=== PATIENT | female | born 1965 | race Caucasian/White ===

== ENCOUNTER 2016-02-17 11:27 | Inpatient (IN) | payer OTHER ==
[2016-02-17] VITALS (8 sets, daily range): BP systolic 125–189; BP diastolic 55–91; PULSE 62–70; RESP 16–28; O2SAT 86–100
[~2016-02-17] VITALS: Ht 162.6 cm; Wt 96.2 kg
[~2016-02-17 11:27] MED LIST: ALPR1TAB7 PO; AMIT75TA2 PO; AMLO10TA3 PO; FLE10 PO; FLUO20TA28 PO
--- NOTE | 2016-02-17 12:00 | ED.REPORT ---
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 Pt reports stabbing pain in abdomen which radiates to left flank constant for last 8 hours. Pt reports associated nausea and vomiting. Pt has no PCP currently. Her only medication currently is Prozac. She has not been taking her Amlodipine and amitriptyline due to being "between" doctors. Nursing Notes Stated Complaint: SEVERE ABDOMINAL PAIN Chief Complaint: General Complaint Nursing Notes Reviewed: Yes Allergies: Coded Allergies: Sulfa (Sulfonamide Antibiotics) (Verified Allergy, Severe, 02/17/16) gabapentin (Verified Allergy, Severe, 02/17/16) olmesartan (Verified Allergy, Severe, swelling , flushing, 02/17/16) prednisone (Verified Allergy, Severe, 02/17/16) ketorolac tromethamine (Verified Allergy, Unknown, 02/17/16) Scheduled Fluoxetine (Fluoxetine) 20 Mg Tablet 40 MG PO DAILY General Time Seen by MD: 11:56 Chief Complaint Abdominal pain Hx Obtained From: Patient Arrived By: Walk-in Sudden in Onset?: No Onset Occurred: 1 week ago Symptom Duration: Intermittent Progression since Onset: Gradually worsening Location: : Flank left: LLQ Quality: Painful, Stabbing Severity: Current: Severe Associated with: Reports: Nausea, Vomiting Pertinent Negative: Relieved by nothing Past Medical History Past Medical History 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 Physical Exam Vital Signs Vital Signs (First) Date Time Temp Pulse Resp B/P Pulse Ox O2 Delivery O2 Flow Rate FiO2 02/17/16 11:30 36.8 69 20 153/91 96 Room Air Initial VS: Reviewed Head / Eyes: Atraumatic, Normocephalic, PERRL ENT: Conjunctiva normal, No scleral icterus Neck: Supple, Full range of motion Extremities: Vascular intact, Neuro intact Skin: Warm, Dry, No cyanosis Neurologic: Alert, Oriented, Nonfocal Psychiatric: Mood/affect normal, Behavior normal, Normal thought content General/Constitutional: Awake, Alert Respiratory / Chest: Breath sounds NL, Breath sounds = bilat, No respiratory distress, No rales, No rhonchi, No wheezing, No stridor Cardiovascular: Heart rate NL, Regular rhythm, Heart sounds NL, Peripheral circulation NL Abdomen: No guarding, No rebound, BS normoactive Tenderness/Guarding/Rebound: Positive: Tender LLQ... (Moderate) Back: Atraumatic, Full range of motion, No CVA tenderness Interpretation & Diagnostics Lab Results Interpretation Result Diagram: 02/17/16 1145 02/17/16 1145 Test 02/17/16 11:45 02/17/16 12:29 White Blood Count 18.5th/mm3 (3.8-10.1) Red Blood Count 5.30mil/mm3 (3.90-5.20) Hemoglobin 15.0g/dL (12.0-15.6) Hematocrit 44.2% (35.0-46.0) Mean Corpuscular Volume 83.4fL (81-100) Mean Corpuscular Hemoglobin 28.3pg (27.0-35.0) Mean Corpuscular Hemoglobin Concent 33.9% (32.0-37.0) Red Cell Distribution Width 14.9% (12.3-15.4) Platelet Count 377bil/L (150-400) Neutrophils (%) (Auto) 56.2% (40-74) Lymphocytes (%) (Auto) 35.1% (14-46) Monocytes (%) (Auto) 5.0% (4-12) Eosinophils (%) (Auto) 2.8% (0-5) Basophils (%) (Auto) 0.6% (0-3) Sodium Level 139mEq/L (134-144) Potassium Level 4.2mEq/L (3.5-5.2) Chloride Level 102mEq/L (97-108) Carbon Dioxide Level 22mmol/L (18-29) Blood Urea Nitrogen 15mg/dL (6-24) Creatinine 0.69mg/dL (0.57-1.00) Estimat Glomerular Filtration Rate 129mL/min (>59) Glucose Level 121mg/dL (60-99) Calcium Level 9.2mg/dL (8.5-10.1) Magnesium Level 2.1mg/dL (1.6-2.6) Total Bilirubin 0.3mg/dL (0.0-1.2) Aspartate Amino Transf (AST/SGOT) 12U/L (0-50) Alanine Aminotransferase (ALT/SGPT) 10U/L (0-32) Alkaline Phosphatase 74U/L (25-150) Total Protein 7.9g/dL (6.4-8.4) Albumin 4.0g/dL (3.4-5.0) Lipase 230U/L (13-60) Hold Manzano Top Tube Received (Received) Hold Urine Received (Received) General Lab Results Interp 1: Labs reviewed ECG Interpretation Time: 11:54 Interpreted by: ED physician Normal ECG Interpretation: Normal rate (64), Normal sinus rhythm, No acute ischemic changes, Normal QRS, Normal axis, Normal intervals, Adequate tracing CT Abd / Pelvis Interpretation IMPRESSION: 1. Nonobstructing left renal calculus. 2. Diverticulosis without visualized inflammatory change. 3. Unchanged appearance of mild extrahepatic biliary prominence suspected to be post cholecystectomy sequela. If concern warrants, further evaluation with correlation to laboratory values is recommended. Dictated by: Gricel Grace M.D. on 02/17/2016 at 14:07 Study type: Abdominal CT IV contrast Interpretation / Wet Read by: Interpret - Radiologist Re-Eval/Medical Decision Med Decision/Clinical Course Clinical pancreatitis with elevated lipase but normal CT scan of the belly. Pain continues to increase despite IV pain medications in the emergency room. Continues to have significant nausea and does not feel that discharge to home is safe. No clear inciting factor to explain her current pancreatitis. Only medication is currently fluoxetine. No recreational drugs and no alcohol. Will admit for IV fluids and nothing by mouth status pain medication and nausea medication and further evaluation Re-Evaluation/Progress : Time of Eval: 14:57 Re-Evaluation/Progress Note: Nausea and pain still present. Updated pt of labs and imaging results. Pt given option for d/c vs/ Admission. Pt would like to be admitted for pain control. All questions addressed. Consultation : Referral / Consult Name: Lenny Tapia MD Consulted With: Hospitalist Call Returned at: 15:28 Landman: Will see patient, Agrees with eval, Agrees with plan, Accepts admit Counseled Regarding: Diagnosis, Lab results, Need for admission Discharge & Departure Primary Impression: Pancreatitis Chronicity: acute Pancreatitis type: unspecified pancreatitis type Qualified Code: K85.9 - Acute pancreatitis, unspecified Disposition: ADMITTED TO HOSPITAL Discharge Condition All VS Reviewed: Yes Referrals: NOPCP (PCP) Maylin Attestation Portions of this note were transcribed by Torrey Amador and Christianne Christine. I, Dr. Farfan personally performed the history, physical exam and medical decision -making; I reviewed and confirmed the accuracy of the information in the transcribed note. Signed by: Maylin Patel, 02/17/16 and 1231. Nicky Farfan MD Feb 17, 2016 12:00 Torrey Amador Feb 17, 2016 12:09 Christianne Christine Feb 17, 2016 12:38
[2016-02-17 12:08] LABS: BASOPHILS % (AUTO) 0.6 % (0-3); EOSINOPHILS % (AUTO) 2.8 % (0-5); Mean Corpuscular Hemoglobin 28.3 pg (27.0-35.0); Mean Corpuscular Volume 83.4 fL (81-100); NEUTROPHILS % (AUTO) 56.2 % (40-74); Platelet Count 377 bil/L (150-400)
[2016-02-17] MEDS ORDERED: 0.9% Sodium Chloride 1,000 ML IV ONE (12:14)
[2016-02-17] MEDS ORDERED: HYDROmorphone 0.5 mg/0.5 mL iSecure Syringe IVPUSH PRN ×2 (12:15→15:35)
[2016-02-17] MEDS ORDERED: Ondansetron 2 mg/mL 2 mL Inj IVPUSH PRN (12:15)
[2016-02-17 12:30] LABS: Magnesium 2.1 mg/dL (1.6-2.6)
[2016-02-17] MEDS: HYDROmorphone 1 mg/mL Inj IVPUSH PRN ×2 (12:46→14:40)
--- NOTE | 2016-02-17 14:09 | DRSVH ---
PROCEDURE: CT ABDOMEN AND PELVIS WITH CONTRAST ([id number]) INDICATIONS: LLQ abdominal pain TECHNIQUE: After the administration of intravenous contrast, 5 mm thick sections acquired from the diaphragm to the symphysis. 5 mm coronal and sagittal reformats were acquired. For radiation dose reduction, the following was used: automated exposure control, adjustment of mA and/or kV according to patient siz e. COMPARISON: Formerly [facility], CT, KUB - CT ([facility]), 01/05/2014, 21:12. Formerly [facility], CT, CT ANGIO CHEST ABD, 05/14/2015, 5:49. Formerly [facility], CT, ABD/PELVIS W/CON ([facility]), 006, 6:00. FINDINGS: Image quality: Excellent. ABDOMEN: Lung bases: Lung bases are clear. Heart size is normal. Solid organs: Liver is mildly enlarged with steatosis. The spleen is normal in size and enhancement. Gallbladder has been removed. There is mild prominence of the extrahepatic biliary system, unchange d. It is suspected to be related to post cholecystectomy sequela. Pancreas enhances normally. No adr enal nodules. Kidneys demonstrate normal size and enhancement, without hydronephrosis. There is a n onobstructing 3 mm left inferior pole renal calcification. Peritoneum and bowel: Bowel loops demonstrate normal wall thickness and caliber. No free fluid or a ir. Mild scattered diverticula are present without visualized inflammatory change. Nodes and vessels: No retroperitoneal or mesenteric adenopathy by size criteria. Aorta and inferior vena cava are normal in size. Miscellaneous: No ventral hernias. PELVIS: Genitourinary: Bladder wall thickness is normal. Miscellaneous: No inguinal hernias or adenopathy. Bones: No suspicious bony lesions. No vertebral body compression fractures. IMPRESSION: 1. Nonobstructing left renal calculus. 2. Diverticulosis without visualized inflammatory change. 3. Unchanged appearance of mild extrahepatic biliary prominence suspected to be post cholecystectomy sequela. If concern warrants, further evaluation with correlation to laboratory values is recommended . Dictated by: Gricel Grace M.D. on 02/17/2016 at 14:07 Approved by: Gricel Grace M.D. on 02/17/2016 at 14:07
[2016-02-17] MEDS ORDERED: HYDROmorphone 1 mg/mL Inj IVPUSH PRN (15:10)
[2016-02-17] MEDS ORDERED: 0.9% Sodium Chloride 1,000 ML IV SCH ×2 (15:10→15:33)
[2016-02-17] MEDS ORDERED: HYDROmorphone 1 mg/mL Inj IVPUSH ONE (15:10)
--- NOTE | 2016-02-17 15:50 | PCM.HPMED ---
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 Pt reports stabbing pain in abdomen which radiates to left flank constant for last 8 hours. Pt reports associated nausea and vomiting. Pt has no PCP currently. Her only medication currently is Prozac. She has not been taking her Amlodipine and amitriptyline due to being "between" doctors. Review of Systems: Gen.: No fevers chills weight loss weight gain, lost some weight recently unintended but patient has worked on losing and lost 150 pounds up until now deliberately Eyes: no visual disturbances or blurring vision HEENT: No nose/throat drainage, no pain in ears or throat, no hearing loss Lymph: No lymph nodes noted Cardiac: No chest pain, orthopnea, PND, palpitations , pedal edema or dyspnea on exertion Pulmonary: no cough, wheezing or bringing up of sputum GI: No anorexia nausea vomiting blood or black in the stool, epigastric burning/ grinding not relieved by food and often worsened by particularly heavier foods radiates around to the left flank : no dysuria hematuria urinary frequency or decrease in urine output Musculoskeletal: Joint swelling no joint pain no new muscle aches or back pain Neuro: No syncope, seizures no loss of consciousness no new focal weakness, numbness or tingling Psychiatric: New new anxiety insomnia or depression Endocrine: No new heat or cold intolerances polyuria or polydipsia Hematology: No lymphadenopathy or easy bleeding or bruising noted skin: No new rashes, stasis dermatitis Allergies Coded Allergies: Sulfa (Sulfonamide Antibiotics) (Verified Allergy, Severe, 02/17/16) gabapentin (Verified Allergy, Severe, 02/17/16) olmesartan (Verified Allergy, Severe, swelling , flushing, 02/17/16) prednisone (Verified Allergy, Severe, 02/17/16) ketorolac tromethamine (Verified Allergy, Unknown, 02/17/16) Home Medications Fluoxetine (Fluoxetine) 20 Mg Tablet 40 MG PO DAILY Has been on amlodipine and amitriptyline in the past PMH 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 Fibromyalgia, low back pain osteoarthritis Spinal stenosis Reports: Cancer, Diabetes mellitus, Hypertension Past Surgical History volvectomy - 1996 Elbow Reports: , Cholecystectomy, Tonsillectomy Smoking History Never Smoker Social History Alcohol Use: Denies alcohol use Drug Use: Denies drug use Other Social History: Local resident Ambulatory Status Independent Social History Hx Alcohol Use: Yes (ONCE EVERY 6 MONTHS) Hx Substance Use: Yes (CBD EDIBLES) Hx Tobacco Use: No Smoking Status: Never Smoker Exam Vital Signs Vital Sign - Last Date Time Temp Pulse Resp B/P Pulse Ox O2 Delivery O2 Flow Rate FiO2 02/17/16 15:44 63 17 151/86 95 Room Air 02/17/16 11:30 36.8 Exam Gen.- A+ O 3 no apparent distress initially. Morbidly obese female visiting with family as soon as they leave its obvious she is in distress Head atraumatic normocephalic Eyes- open conjunctiva clear, pupils equal nonicteric, ENT- ears normal, nose normal Neck- supple/trach midline CVS- RRR no murmur or gallop, edema consistent with body habitus Lungs- bilateral wheezes occasional rhonchus on right base GI- NABS, soft, generous pannus tenderness in the epigastric area, no guarding definite rebound Musc- moving 4 no obvious deformity Neuro- cranial nerves II through XII intact to gross examination, nonfocal Skin- warm and dry Psych- pleasant and appropriate, Lab and Diagnostics Labs LFTs WNL, lipase 230, urine clear no RBCs or bacteria Result Diagram: 02/17/16 1145 02/17/16 1145 X-Rays, CTs and MRIs CT abd/pelvis w/ contrast personally reviewed by myself and with the radiologist over the phone 1. Nonobstructing left renal calculus. 2. Diverticulosis without visualized inflammatory change. 3. Unchanged appearance of mild extrahepatic biliary prominence suspected to be post cholecystectomy sequela. If concern warrants, further evaluation with correlation to laboratory values is recommended. I personally reviewed the chest x-ray appeared to be air bronchograms bilaterally right greater than left official read pending. 12-lead ECG Sinus rhythm with a rate of 64, QTC [address] segment changes personally reviewed by myself Assessment & Plan 50-year-old female with history of aortic thrombus with dissection of suprarenal abdominal aorta presents with left-sided flank pain Abdominal pain/l flank pain- differential includes further dissection of aorta (no evidence on CT reviewed w/ RADs) vs nephhrolithiasis (UA clr nor rbcs) , or has enteric ischemia (consider CT angiogram or discussion with radiology as to best approach), versus pancreatitis seems unlikely given the benign CT scan, lipase of only 230 but based on symptoms does appear to be the correct diagnosis. 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 Leukocytosis-uncertain etiology stress versus infection, UA is clear, CXR appears to have air bronchograms am going to go ahead and treat community- acquired pneumonia Community-acquired pneumonia-starting Zithromax/Rocephin, prednisone, bronchodilators and cough suppressants and the patient has had no symptoms no cough, no dyspnea, no fevers or chills Low back pain-chronic Prophylaxis- DVT utilize SCDs/lmwh. GI- Rx famotidine Disposition- patient's full code from home Possible celiac stenosis on discussion with Dr. Reynoso who read CT watch for sitophobia No evidence of the prior mural thrombus, dissection, left renal infarction [place] [address] [place]valo on CT 02/16 discussed with Lenny Gonzalez MD Feb 17, 2016 15:50
[2016-02-17] MEDS ORDERED: Alum-Mag Hydrox-Simeth 30 mL Suspension PO PRN (16:20)
[2016-02-17] MEDS ORDERED: Polyethylene Glycol (PEG) 17 Gm Powder PO PRN (16:20)
[2016-02-17] MEDS ORDERED: HYDROcodone-APAP 5-325 mg Tablet PO PRN (16:20)
--- NOTE | 2016-02-17 17:19 | NUR ---
Transfer from ER to [facility] patient transferred to [facility] approx 1700 . per report patient is alert and oriented. patient received dilaudid for pain, Liter fluid, and benadryl at ER per report. independent with all transfers, room air, NPO. continue to monitor pain.
[2016-02-17] MEDS: D5 0.45% NaCl + KCl 20 mEq/L 1,000 ML IV SCH (17:41)
[2016-02-17] MEDS: HYDROmorphone PCA 0.2 mg/mL 30 mL Inj IV PRN (17:43)
[2016-02-17] MEDS: Ondansetron 2 mg/mL 2 mL Inj IVPUSH PRN (20:38)
[2016-02-17 20:45] LABS: APPEARANCE,URINE CLEAR (CLEAR,HAZY); COLOR,URINE YELLOW (YELLOW); OCCULT BLOOD,URINE TRACE (NEGATIVE); PH,URINE 5.5 (5.0-8.0); UROBILINOGEN,URINE NORMAL (NORMAL)
[2016-02-17] MEDS ORDERED: Codeine-guaiFENesin 10 mL Syrup PO PRN (22:25)
[2016-02-17] MEDS ORDERED: cefTRIAXone Inj 2,000 MG in IV Premix 1 EACH IV SCH (22:30)
[2016-02-17] MEDS: Famotidine Inj 20 MG in IV Premix 1 EACH IV SCH (22:47)
[2016-02-18] VITALS (15 sets, daily range): BP systolic 155–206; BP diastolic 77–114; PULSE 57–95; RESP 16–22; O2SAT 91–100
[2016-02-18] MEDS: Ondansetron 2 mg/mL 2 mL Inj IVPUSH PRN ×3 (00:16→17:27)
[2016-02-18] MEDS ORDERED: MeTOProlol 1 mg/mL 5 mL Inj IVPUSH ONE (01:05)
[2016-02-18] MEDS: HYDROmorphone PCA 0.2 mg/mL 30 mL Inj IV PRN (01:34)
[2016-02-18] MEDS: D5 0.45% NaCl + KCl 20 mEq/L 1,000 ML IV SCH ×2 (04:28→17:24)
--- NOTE | 2016-02-18 06:35 | NUR ---
Antibiotics/diaphoretic/Blood pressure Patient was given oral antibiotics and IV antibiotics. 30 minutes later patient began vomiting. became diaphoretic, bright red in color. MD notified. BP elevated 200/100. MD up to see patient. Pharmacy notified, could be possible allergic reaction to antibiotics. MD states that her redness appears localized to her face only and does not appear to be an allergic reaction but continue to monitor. new orders for blood pressure medications. Patient Blood pressure continued to drop with VEGETABLE GROWER bolusesx3 . patient medicated with PO amlodipine. BP 150/60 HR 60. Held IV metroplol for now. 4 hours later patient fell asleep and awoke in pain. BP elevated 200/100. Patient given IV boluses x3. BP decreased to 160/80. will continue to monitor.
--- NOTE | 2016-02-18 06:41 | NUR ---
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 20:20, 20:30, 20:40. after third bolus patient reports pain much better 4/10. patient maintained 02 above 90%. 00:20, 00:30, and 00:40 patient given IV [employer] dilaudid boluses for pain 8/10 BP elevated, patient red, diaphoretic. after 3rd bolus patient reported relief from pain. 04:20, 04:30, 04:40. patient medicated with IV boluses per protocol after 3rd bolus patient reported relief. alert, CPOX in place. 02 maintained above 90% while sleeping.
[2016-02-18] MEDS: Famotidine Inj 20 MG in IV Premix 1 EACH IV SCH ×2 (08:30→22:42)
--- NOTE | 2016-02-18 08:59 | NUR ---
Social Work: Screening Data: Pt is a 50 y/o female admitted for pancreatitis. Pt's PCP is not listed, pt's insurance is [employer]. Pt readmit score is 1. EMR reviewed, no d/c planning needs anticipated at this time. TRIMMER MACHINE will continue to follow if needs arise. Assessment: Pt who is independent at baseline. Plan: Pt will d/c home via POV when medically stable. No d/c planning needs anticipated at this time. TRIMMER MACHINE will continue to follow if needs arise. CALOS Rose
--- NOTE | 2016-02-18 09:07 | DRSVH ---
PROCEDURE: X-RAY CHEST, TWO VIEWS ([id number]) INDICATIONS: leukocytosis TECHNIQUE: 2 views of the chest were acquired. COMPARISON: [facility], CR, XR CHEST 2VW, 06/03/2015, 21:13. FINDINGS: Surgical changes and devices: Cholecystectomy clips. Lungs and pleura: No pleural effusions or pneumothorax. Mild increased pulmonary vascularity. Mediastinum: Mediastinal contours are normal. Heart size is mildly enlarged. Bones and chest wall: No suspicious bony abnormalities. Soft tissues appear unremarkable. IMPRESSION: Mild cardiomegaly with an appearance of increased pulmonary vascularity. Dictated by: Gricel Grace M.D. on 02/18/2016 at 9:05 Approved by: Gricel Grace M.D. on 02/18/2016 at 9:05
[2016-02-18] MEDS: Albuterol 2.5 mg/3 mL Inhalation Solution NEB PRN (09:16)
[2016-02-18 09:38] LABS: BASOPHILS % (AUTO) 0.7 % (0-3); EOSINOPHILS % (AUTO) 2.5 % (0-5); MONOCYTES % (AUTO) 6.6 % (4-12); Mean Corpuscular Hemoglobin 27.9 pg (27.0-35.0); Mean Corpuscular Volume 86.2 fL (81-100); NEUTROPHILS % (AUTO) 51.5 % (40-74); Platelet Count 341 bil/L (150-400)
[2016-02-18 09:46] LABS: Phosphorus 4.5 mg/dL (2.5-4.9)
--- NOTE | 2016-02-18 13:15 | PCM.PNMED ---
Subjective Date of Service Feb 18, 2016 Subjective pt felt better but still had LLQ pain, pt is on TILE LAYER dilaudid, pain currently / denied n/v/diarrhea Exam Vital Signs Vital Sign - Last Date Time Temp Pulse Resp B/P Pulse Ox O2 Delivery O2 Flow Rate FiO2 02/18/16 10:02 36.6 71 22 190/80 100 Nasal Cannula 2.00 Intake and Output 02/17/16 02/17/16 02/18/16 Cumulative From/Thru 15:00 23:00 07:00 02/17/16 11:30 - 02/18/16 06:55 Intake Total 1000 ml 0 ml 1000 ml Output Total 1000 ml 1000 ml Balance 1000 ml -1000 ml 0 ml Intake Oral 0 ml 0 ml IV Total 1000 ml 1000 ml Output Urine Total 1000 ml 1000 ml Exam NAD, comfortably laying down on the bed no JVD, MMM, no LAD RRR, nl s1, s2 no mrg CTAB, no w,c S,ND,mild LLQ td,normoactive BS+ warm, no edema, pulses 2/2 IVs and Medications Medications Reviewed: Medications were reviewed in detail Lab and Diagnostics Result Diagram: 02/18/1690402/18/16 09 X-Rays, CTs and MRIs CT abd/pelvis w/ contrast personally reviewed by myself and with the radiologist over the phone 1. Nonobstructing left renal calculus. 2. Diverticulosis without visualized inflammatory change. 3. Unchanged appearance of mild extrahepatic biliary prominence suspected to be post cholecystectomy sequela. If concern warrants, further evaluation with correlation to laboratory values is recommended. I personally reviewed the chest x-ray appeared to be air bronchograms bilaterally right greater than left official read pending. 12-lead ECG Sinus rhythm with a rate of 64, QTC [address] segment changes personally reviewed by myself Assessment & Plan 50-year-old female with history of aortic thrombus with dissection of suprarenal abdominal aorta presents with left-sided flank pain acute, active #Lt sided flank pain, LLQ pain, POA, ddx-viral AGE vs nephhrolithiasis. CT abd with Con showed nonobstructing 3mm stone on left renal pole, normal pancreas, no signs of colitis, no evidence of vascular dz, unlikely ischemic bowel dz given normal lactate, improving wbc, benign exams, lipase normalized as well. -will continue supportive tx -will d/c TILE LAYER dilaudid, continue morphine 1-2mg q4h prn, percocet prn -get stool PCR -d/c abx for presumed PNA as pt denied any respiratory sx -zofran prn for n/v chronic, stable Fibromyalgia, chronic back pain, continue prozac, Hx of aortic thrombus with dissection of suprarenal abdominal aorta in 2005, finished coumadin tx, not active dvt ppx: SCD Full code diet: clears, advance as tolerate dispo: likely 1-2more days, home Time spent 35min Krystyna Duron MD Feb 18, 2016 13:14
[2016-02-18] MEDS: oxyCODONE-Acetamin 5-325 mg Tablet PO PRN (17:24)
--- NOTE | 2016-02-18 19:17 | NUR ---
Pain: Patient c/o pain in her left mid back area that radiates all the way around her abdomen. The pain is 7 on 1-10 scale. 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 Patient ws complaining of pain and was given 2 MG of Morpine with no effect. She was given Percocet 1 tab and the med started relieve her pain 30 minutes after taking the med.
[2016-02-19] VITALS (9 sets, daily range): BP systolic 165–191; BP diastolic 82–105; PULSE 59–80; RESP 18–19; O2SAT 97
[2016-02-19] MEDS: oxyCODONE-Acetamin 5-325 mg Tablet PO PRN ×4 (01:22→20:56)
[2016-02-19] MEDS: D5 0.45% NaCl + KCl 20 mEq/L 1,000 ML IV SCH ×3 (02:43→20:03)
[2016-02-19] MEDS: Ondansetron 2 mg/mL 2 mL Inj IVPUSH PRN ×3 (05:21→22:07)
--- NOTE | 2016-02-19 07:19 | NUR ---
Pain Patient given morphine 2mg every 4 hours for pain and 1 percocet every 6 hours for abdominal pain 6-8/10. Patient reported nausea this AM and was medicated with 8mg zofran per request. Patient reports that pain is decreased to 3-4/10 after pain medications. she reports improvement from the previous night. One void was not strained but no stone was seen. Patient has small light peterson, sand type objects in strainer. Patient voiding frequently and large amounts. will continue to monitor.
[2016-02-19 08:15] LABS: EOSINOPHILS % (AUTO) 3.3 % (0-5); MONOCYTES % (AUTO) 6.9 % (4-12); Mean Corpuscular Hemoglobin 28.2 pg (27.0-35.0); Mean Corpuscular Volume 84.5 fL (81-100); NEUTROPHILS % (AUTO) 41.5 % (40-74); Platelet Count 330 bil/L (150-400)
[2016-02-19 08:29] LABS: Magnesium 1.8 mg/dL (1.6-2.6); Phosphorus 3.3 mg/dL (2.5-4.9)
[2016-02-19] MEDS: Famotidine Inj 20 MG in IV Premix 1 EACH IV SCH ×2 (08:46→20:00)
[2016-02-19] MEDS: Albuterol 2.5 mg/3 mL Inhalation Solution NEB PRN (09:01)
--- NOTE | 2016-02-19 13:56 | PCM.PNMED ---
Subjective Date of Service Feb 19, 2016 Subjective patient still has radiating lt flank pain, improved from yesterday no n/v also has epigastric burning, relieved with Maalox AQUATIC ECOLOGIST is off, pain was controlled with current regimen Exam Vital Signs Vital Sign - Last Date Time Temp Pulse Resp B/P Pulse Ox O2 Delivery O2 Flow Rate FiO2 02/19/16 09:22 36.6 68 19 191/90 97 Room Air 02/18/16 18:52 2.00 Intake and Output 02/18/16 02/18/16 02/19/16 Cumulative From/Thru 15:00 23:00 07:00 02/17/16 11:30 - 02/19/16 06:17 Intake Total 0 ml 820 ml 1820 ml Output Total 2100 ml 1800 ml 4900 ml Balance -2100 ml -980 ml -3080 ml Intake Oral 0 ml 820 ml 820 ml IV Total 1000 ml Output Urine Total 2100 ml 1800 ml 4900 ml # Bowel Movements 0 0 Exam NAD, comfortably laying down on the bed no JVD, MMM, no LAD RRR, nl s1, s2 no mrg CTAB, no w,c S,ND,NT,normoactive BS+ warm, no edema, pulses 2/2 IVs and Medications Medications Reviewed: Medications were reviewed in detail Lab and Diagnostics Result Diagram: 02/19/16 0800 02/19/16 0800 X-Rays, CTs and MRIs CT abd/pelvis w/ contrast personally reviewed by myself and with the radiologist over the phone 1. Nonobstructing left renal calculus. 2. Diverticulosis without visualized inflammatory change. 3. Unchanged appearance of mild extrahepatic biliary prominence suspected to be post cholecystectomy sequela. If concern warrants, further evaluation with correlation to laboratory values is recommended. I personally reviewed the chest x-ray appeared to be air bronchograms bilaterally right greater than left official read pending. 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 CT abd with Con showed nonobstructing 3mm stone on left renal pole, normal pancreas, no signs of colitis, no evidence of vascular dz, unlikely ischemic bowel dz given normal lactate, improving wbc, benign exams, lipase normalized as well. Given ongoing pain, significant hx of renal infarc/dissection on similar area, will rule out vascular disease with CTA today. 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
--- NOTE | 2016-02-19 14:46 | DRSVH ---
PROCEDURE: ANGIO ABD/PELVIS W/CON INDICATIONS: persistent lt flank pain TECHNIQUE: After the administration of intravenous contrast, 2 and 5 mm sections acquired from the diaphragm to the iliac crests. 3-dimensional maximum intensity projection (MIP) coronal and sagittal reformats, a nd/or 3-dimensional volume rendering reformatting was then performed. For radiation dose reduction, the following was used: automated exposure control. COMPARISON: [facility], CT, CT ANGIO CHEST ABD, 05/14/2015, 5:49. FINDINGS: Image quality: Excellent. Extravascular tissues: Lung bases are clear. Heart size is normal. Liver and spleen are normal in size and enhancement. Gallbladder is surgically absent. Biliary system is non dilated. Pancreas en hances normally. No adrenal nodules. Kidneys are normal in size and enhancement, without hydronephr osis. There are focal regions of cortical thinning within the left kidney which may be associated wit h prior infarct or infection. There is a nonobstructing 4 mm diameter left lower pole renal calculus. Non-opacified bowel loops demonstrate normal wall thickness and caliber. The appendix is thin wall ed and gas filled. There are scattered sigmoid diverticula. No evidence for diverticulitis. No free f luid or air. No retroperitoneal or mesenteric adenopathy. No ventral hernias. No suspicious bony a bnormalities. No vertebral body compression fractures. Abdominal aorta: The abdominal aorta demonstrates normal course and caliber. There are scattered athe romatous calcifications throughout the visualized portions of the inferior thoracic and abdominal aor ta. The previously visualized intimal flap within the suprarenal abdominal aorta on the study dated is less conspicuous on the current study. No aneurysmal dilatation. 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 A moderate to high-grade stenosis is present at the origin of the SMA sec ondary to atheromatous plaque. The JUANA is patent. The origin is not well-visualized and may be stenot ic. Renal arteries: There is mild atheromatous calcification at the origin of the bilateral renal arterie s with mild resultant stenosis. The renal arteries are otherwise patent throughout their course. Ther e are single bilateral renal arteries. IMPRESSION: 1. No acute intra-abdominal findings. Normal appendix. 2. Diverticulosis. No acute diverticulitis. 3. 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 4. 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 5. Patent bilateral renal arteries. 6. Nonobstructing left nephrolithiasis. 7. Decreased conspicuity of the previously visualized intimal flap within the suprarenal tunnel aorta . No findings to suggest progression of aortic dissection. Dictated by: Edith Patel M.D. on 02/19/2016 at 14:12 Approved by: Edith Patel M.D. on 02/19/2016 at 14:44
[2016-02-20 01:40] VITALS: BP 159/80; PULSE 54; RESP 22; O2SAT 96
[2016-02-20] MEDS: Ondansetron 2 mg/mL 2 mL Inj IVPUSH PRN ×2 (02:32→09:13)
[2016-02-20] MEDS: D5 0.45% NaCl + KCl 20 mEq/L 1,000 ML IV SCH (02:41)
[2016-02-20 05:45] VITALS: BP 150/74; PULSE 64; RESP 18; O2SAT 94
[2016-02-20 06:17] VITALS: PULSE 65
[2016-02-20 07:04] LABS: BASOPHILS % (AUTO) 0.9 % (0-3); EOSINOPHILS % (AUTO) 4.5 % (0-5); MONOCYTES % (AUTO) 8.2 % (4-12); Mean Corpuscular Hemoglobin 28.4 pg (27.0-35.0); Mean Corpuscular Volume 84.8 fL (81-100); NEUTROPHILS % (AUTO) 36.4 % (40-74); Platelet Count 311 bil/L (150-400)
[2016-02-20 07:31] LABS: Phosphorus 3.9 mg/dL (2.5-4.9)
--- NOTE | 2016-02-20 07:35 | NUR ---
Pain Patient c/o abdominal pain 6-810,tenderness at middle upper and left upper quadrant and left flank, Percocet and Morphine given alternately, k-pad applied, pain controlled adequate, pt sleeping. Pt denies n/v, tolerate full liquid, tea provided per pt requests. Pt instructed advance diet as tolerated gradually, such as soup-soft, small multiple meals. Zofran given to prevent nausea r/o morphine per pt requests.
[2016-02-20 09:07] VITALS: BP 164/84; PULSE 72; RESP 18; O2SAT 96
[2016-02-20] MEDS: Famotidine Inj 20 MG in IV Premix 1 EACH IV SCH (09:13)
[2016-02-20 10:14] VITALS: PULSE 62
--- NOTE | 2016-02-20 11:43 | PCM.DIMED ---
Discharge Instructions Date of Service Feb 20, 2016 Dates of Hospitalization Feb 17, 2016 at 15:38 Discharge Diagnosis Discharge Diagnosis kidney stone Diet Other (calcium supplement, enough hydrastion) Activity No restrictions Call your provider Shortness of breath, Chest pain Patient Instructions You were hospitalized with intractable left side flank pain, found to have kidney stone. Please [facility], information given on discharge Follow-up with PCP in: 2 weeks Krystyna Duron MD Feb 20, 2016 11:43
--- NOTE | 2016-02-20 12:22 | NUR ---
Social Work: Discharge Data: Pt is on day 3 of hospitalization. EMR reviewed, pt discussed in rounds. D/C orders are in. No further d/c planning needs. GAS WELDER APPRENTICE will continue to follow if needs arise. Assessment: Pt who is independent at baseline. Plan: Pt will d/c home today via POV. No further d/c planning needs. GAS WELDER APPRENTICE will continue to follow if needs arise. CALOS Rose
--- NOTE | 2016-02-20 12:27 | NUR ---
Discharge Patient discharge to home with all belongings. Explained to patient when next medication is due and discharge instructions. Patient verbalized understanding. Dc'd IV intact x2. Dc'd telemetry. Vitals stable. Patient left floor via wheelchair accompanied by REFRIGERATION MECHANIC and daughter with no signs of distress.
--- NOTE | 2016-02-21 16:15 | PCM.DC.MED ---
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 3-dimensional maximum intensity projection (MIP) coronal and sagittal reformats, and/or 3-dimensional volume rendering reformatting was then performed. For radiation dose reduction, the following was used: automated exposure control. COMPARISON: [facility], CT, CT ANGIO CHEST ABD, 05/14/2015, 5:49. FINDINGS: Image quality: Excellent. Extravascular tissues: Lung bases are clear. Heart size is normal. Liver and spleen are normal in size and enhancement. Gallbladder is surgically absent. Biliary system is non dilated. Pancreas enhances normally. No adrenal nodules. Kidneys are normal in size and enhancement, without hydronephrosis. There are focal regions of cortical thinning within the left kidney which may be associated with prior infarct or infection. There is a nonobstructing 4 mm diameter left lower pole renal calculus. Non-opacified bowel loops demonstrate normal wall thickness and caliber. The appendix is thin walled and gas filled. There are scattered sigmoid diverticula. No evidence for diverticulitis. No free fluid or air. No retroperitoneal or mesenteric adenopathy. No ventral hernias. No suspicious bony abnormalities. No vertebral body compression fractures. Abdominal aorta: The abdominal aorta demonstrates normal course and caliber. There are scattered atheromatous calcifications throughout the visualized portions of the inferior thoracic and abdominal aorta. The previously visualized intimal flap within the suprarenal abdominal aorta on the study dated 05/14/15 is less conspicuous on the current study. No aneurysmal dilatation. 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 A moderate to high-grade stenosis is present at the origin of the SMA secondary to atheromatous plaque. The JUANA is patent. The origin is not well-visualized and may be stenotic. Renal arteries: There is mild atheromatous calcification at the origin of the bilateral renal arteries with mild resultant stenosis. The renal arteries are otherwise patent throughout their course. There are single bilateral renal arteries. IMPRESSION: 1. No acute intra-abdominal findings. Normal appendix. 2. Diverticulosis. No acute diverticulitis. 3. 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 4. 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 5. Patent bilateral renal arteries. 6. Nonobstructing left nephrolithiasis. 7. Decreased conspicuity of the previously visualized intimal flap within the suprarenal tunnel aorta. No findings to suggest progression of aortic dissection. Dictated by: Edith Patel M.D. on 02/19/2016 at 14:12 Approved by: Edith Patel M.D. on 02/19/2016 at 14:44 PROCEDURE: CT ABDOMEN AND PELVIS WITH CONTRAST ([facility] [id number]) INDICATIONS: LLQ abdominal pain TECHNIQUE: After the administration of intravenous contrast, 5 mm thick sections acquired from the diaphragm to the symphysis. 5 mm coronal and sagittal reformats were acquired. For radiation dose reduction, the following was used: automated exposure control, adjustment of mA and/or kV according to patient size. COMPARISON: [facility], CT, KUB - CT ([facility] [place]), 01/05/2014, 21:12. [facility], CT, CT ANGIO CHEST ABD, 05/14/2015, 5:49. [facility], CT, ABD/PELVIS W/CON ([facility] [place]), 12/20/2005, 6:00. FINDINGS: Image quality: Excellent. ABDOMEN: Lung bases: Lung bases are clear. Heart size is normal. Solid organs: Liver is mildly enlarged with steatosis. The spleen is normal in size and enhancement. Gallbladder has been removed. There is mild prominence of the extrahepatic biliary system, unchanged. It is suspected to be related to post cholecystectomy sequela. Pancreas enhances normally. No adrenal nodules. Kidneys demonstrate normal size and enhancement, without hydronephrosis. There is a nonobstructing 3 mm left inferior pole renal calcification. Peritoneum and bowel: Bowel loops demonstrate normal wall thickness and caliber. No free fluid or air. Mild scattered diverticula are present without visualized inflammatory change. Nodes and vessels: No retroperitoneal or mesenteric adenopathy by size criteria. Aorta and inferior vena cava are normal in size. Miscellaneous: No ventral hernias. PELVIS: Genitourinary: Bladder wall thickness is normal. Miscellaneous: No inguinal hernias or adenopathy. Bones: No suspicious bony lesions. No vertebral body compression fractures. IMPRESSION: 1. Nonobstructing left renal calculus. 2. Diverticulosis without visualized inflammatory change. 3. Unchanged appearance of mild extrahepatic biliary prominence suspected to be post cholecystectomy sequela. If concern warrants, further evaluation with correlation to laboratory values is recommended. Dictated by: Gricel Grace M.D. on 02/17/2016 at 14:07 Approved by: Gricel Grace M.D. on 02/17/2016 at 14:07 ECG 12 Lead Sinus rhythm with a rate of 64, QTC [address] segment changes personally reviewed by myself Brief History H&P performed by Dr. 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 Pt reports stabbing pain in abdomen which radiates to left flank constant for last 8 hours. Pt reports associated nausea and vomiting. Pt has no PCP currently. Her only medication currently is Prozac. She has not been taking her Amlodipine and amitriptyline due to being "between" doctors. 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 CT abd with Con showed nonobstructing 3mm stone on left renal pole, normal pancreas , no signs of colitis, no evidence of vascular dz, unlikely ischemic bowel dz given normal lactate, improving wbc, benign exams, lipase normalized as well. However, pain persisted, pt kept requiring frequent opioid dosing, therefore, CTA obtained given significant hx of renal infarc/dissection on similar area, which essentially ruled out vascular dz. 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 in 2006, finished coumadin tx, not active Exam Vital Signs (Last) Date Time Temp Pulse Resp B/P Pulse Ox O2 Delivery O2 Flow Rate FiO2 02/20/16 10:14 62 02/20/16 09:13 Supplement Oxygen 02/20/16 09:07 36.6 18 164/84 96 02/18/16 18:52 2.00 Exam NAD, comfortably laying down on the bed no JVD, MMM, no LAD RRR, nl s1, s2 no mrg CTAB, no w,c S,ND,NT,normoactive BS+ warm, no edema, pulses 2/2 Test 02/17/16 11:45 02/17/16 12:29 02/18/16 09:05 02/19/16 08:00 Hold [place] Top Tube Received (Received) Urine Color Yellow (YELLOW) Urine Appearance Clear (CLEAR,HAZY) Urine pH 5.5 (5.0-8.0) Urine Specific [place] 1.010 (1.003-1.035) Urine Protein Negativemg/dL (NEG,TRACE) Urine Glucose (UA) Negativemg/dL (NEGATIVE) Urine Ketones Negativemg/dL (NEGATIVE) Urine Occult Blood Trace (NEGATIVE) Urine Nitrite Negative (NEGATIVE) Urine Bilirubin Negative (NEGATIVE) Urine Urobilinogen Normalmg/dL (NORMAL) Urine Leukocyte Esterase Negative (NEGATIVE) Urine RBC 0-2/hpf (0-2) Urine WBC 0-5/hpf (0-5) Urine Epithelial Cells Occasional/hpf (NONE-MOD) Urine Crystals Amorphous urates (NONE Urine Bacteria None/hpf (NONE-FEW) Urine Hyaline Casts None/lpf (NONE) Urine Granular Casts None seen (NONE SEEN) Urine Waxy Casts None seen (NONE SEEN) Urine Red Blood Cell Casts None seen (NONE SEEN) Urine White Blood Cell Casts None seen (NONE SEEN) Urine Mucus None seen (None Seen) Urine Trichomonas None seen (NONE SEEN) Urine Yeast None (NONE SEEN) Urine Culture Reflexed Not indicated Hold Urine Received (Received) Lactic Acid Level 0.9mmol/L (0.4-2.0) Lipase 31U/L (13-60) Troponin T < 0.010ug/L (0.0-0.011) Test 02/20/16 06:45 White Blood Count 8.1th/mm3 (3.8-10.1) Red Blood Count 5.14mil/mm3 (3.90-5.20) Hemoglobin 14.6g/dL (12.0-15.6) Hematocrit 43.6% (35.0-46.0) Mean Corpuscular Volume 84.8fL (81-100) Mean Corpuscular Hemoglobin 28.4pg (27.0-35.0) Mean Corpuscular Hemoglobin Concent 33.5% (32.0-37.0) Red Cell Distribution Width 14.9% (12.3-15.4) Platelet Count 311bil/L (150-400) Neutrophils (%) (Auto) 36.4% (40-74) Lymphocytes (%) (Auto) 49.6% (14-46) Monocytes (%) (Auto) 8.2% (4-12) Eosinophils (%) (Auto) 4.5% (0-5) Basophils (%) (Auto) 0.9% (0-3) Sodium Level 140mEq/L (134-144) Potassium Level 4.6mEq/L (3.5-5.2) Chloride Level 104mEq/L (97-108) Carbon Dioxide Level 25mmol/L (18-29) Blood Urea Nitrogen 9mg/dL (6-24) Creatinine 0.75mg/dL (0.57-1.00) Estimat Glomerular Filtration Rate 117mL/min (>59) Glucose Level 137mg/dL (60-99) Calcium Level 8.8mg/dL (8.5-10.1) Phosphorus Level 3.9mg/dL (2.5-4.9) Magnesium Level 2.0mg/dL (1.6-2.6) Total Bilirubin 0.5mg/dL (0.0-1.2) Aspartate Amino Transf (AST/SGOT) 13U/L (0-50) Alanine Aminotransferase (ALT/SGPT) 8U/L (0-32) Alkaline Phosphatase 62U/L (25-150) Total Protein 6.4g/dL (6.4-8.4) Albumin 3.5g/dL (3.4-5.0) Discharge Medications Discharge Medications Fluoxetine (Fluoxetine) 20 Mg Tablet 40 MG PO DAILY (Reported) Followup Plan Disposition: Home Discharge Diet: Other (calcium supplement, enough hydrastion) Discharge Activity: No restrictions Patient Instructions You were hospitalized with intractable left side flank pain, found to have kidney stone. Please [facility], information given on discharge Follow-up with PCP in: 2 weeks Time spent 65 minutes Krystyna Duron MD Feb 21, 2016 16:14
== END 2016-02-20 12:25 | disposition home or self-care (01) | DRG 694 ==
LOC: SED 11:27 → MPC 15:38
PROVIDERS: ADMIT Hospitalist; ATTEND Hospitalist
DX: N20.0 Calculus of kidney (principal); M79.7 Fibromyalgia; Z90.49 Acquired absence of other specified parts of digestive tract